=== PATIENT | female | born 1965 | race Caucasian/White ===

== ENCOUNTER 2022-03-08 20:51 | Emergency (ER) | payer OTHER, BC, SELFPAY ==
[2022-03-08 20:57] VITALS: BP 147/78; PULSE 73; RESP 20; TEMP 36.9; O2SAT 98; BMI 25.1
--- NOTE | 2022-03-08 21:21 | ED_ITS ---
HPI - Female Genitourinary General Chief complaint: Vaginal Bleeding <Yaniv Soria MD - Last Filed: 03/09/22 16:45> Stated complaint: Clotting,Bleeding <Yaniv Soria MD - Last Filed: 03/09/22 16:45> Time Seen by Provider: 03/08/22 21:17 <Yaniv Soria MD - Last Filed: 03/09/22 16:45> History of Present Illness HPI Narrative: Pt is a 56 year old woman who had a LEEP procedure 11 days ago. By all reports, things went well until she started bleeding profusely this evening. Pt is unable to quantify the amount of blood loss or pads used but states that she is passing bright red blood as well as clots. No abd pain. No fevers, chills. Pt is feeling well otherwise and has no urinary symptoms. Pt states that the procedure went well and she otherwise has no symptoms. Pt takes no blood thinners or anticoagulants and is otherwise in very good health. <Yaniv Soria MD - Last Filed: 03/09/22 16:45> Related Data Home medications: Home Medications Medication Instructions Recorded Confirmed sertraline 100 mg tablet 100 mg PO QDAY 02/24/22 03/08/22 <Yaniv Soria MD - Last Filed: 03/09/22 16:45> Allergies/Adverse reactions: Allergies Allergy/AdvReac Type Severity Reaction Status Date / Time metronidazole [From Flagyl] Allergy Mild Fever Verified 02/24/22 12:59 Sulfa (Sulfonamide Allergy Mild Fever Verified 02/24/22 12:59 Antibiotics) <Yaniv Soria MD - Last Filed: 03/09/22 16:45> Review of Systems Status of ROS: Reports: 10 or more systems reviewed and unremarkable except as noted in History and below <Yaniv Soria MD - Last Filed: 03/09/22 16:45> [facility] Medical History: Medical History (Updated 03/09/22 @ 01:19 by Natasha Dean MD) APRIL II (cervical intraepithelial neoplasia II) <Yaniv Soria MD - Last Filed: 03/09/22 16:45> Surgical History: Surgical History (Updated 03/08/22 @ 23:36 by Elke Mason MD) H/O LEEP <Yaniv Soria MD - Last Filed: 03/09/22 16:45> Social History: Social History Smoking Status: Never smoker Non-prescribed substance use: denies use <Yaniv Soria MD - Last Filed: 03/09/22 16:45> Exam Narrative: Exam Narrative: EXAM GENERAL: Patient appears comfortable and well. EYES: No scleral icterus. LYMPH: No supraclavicular or cervical lymphadenopathy. SKIN: Visible skin seen during exam normal or with benign process only. EXT: No dependent lower extremity pedal edema. HEART: Regular rate and rhythm with no murmurs, rubs, or gallops. LUNGS: Clear to auscultation bilaterally with no crackles or wheezes. ABD: Soft, non tender, non distended. PSYCH: Good eye contact, speech is not pressured. <Yaniv Soria MD - Last Filed: 03/09/22 16:45> Const: Vital Signs, click to edit/add: Vital Signs - 24 hr 03/08/22 20:57 03/08/22 22:34 03/08/22 23:44 Temperature 98.5 F Pulse Rate [Right Pulse Oximeter] 73 76 71 Respiratory Rate 20 18 Blood Pressure [Le ft Upper Arm] 147/78 H 130/63 Pulse Oximetry 98 98 99 Oxygen Delivery Me thod Room Air Room Air 03/09/22 00:47 03/09/22 02:09 03/08/22 22:00 Temperature 98.5 F Pulse Rate [Right Pulse Oximeter] 70 70 Respiratory Rate 16 16 Blood Pressure [Le ft Upper Arm] 123/68 125/74 Pulse Oximetry 98 98 98 Oxygen Delivery Me thod Room Air Room Air 03/09/22 04:58 Temperature 98.5 F Pulse Rate [Right Pulse Oximeter] 70 Respiratory Rate 16 Blood Pressure [Le ft Upper Arm] 125/74 Pulse Oximetry Oxygen Delivery Me thod <Yaniv Soria MD - Last Filed: 03/09/22 16:45> Vital Signs, click to edit/add: Vital Signs - 24 hr 03/08/22 20:57 03/08/22 22:34 03/08/22 23:44 Temperature 98.5 F Pulse Rate [Right Pulse Oximeter] 73 76 71 Respiratory Rate 20 18 Blood Pressure [Le ft Upper Arm] 147/78 H 130/63 Pulse Oximetry 98 98 99 Oxygen Delivery Me thod Room Air Room Air 03/09/22 00:47 03/09/22 02:09 03/08/22 22:00 Temperature 98.5 F Pulse Rate [Right Pulse Oximeter] 70 70 Respiratory Rate 16 16 Blood Pressure [Le ft Upper Arm] 123/68 125/74 Pulse Oximetry 98 98 98 Oxygen Delivery Me thod Room Air Room Air 03/09/22 04:58 Temperature 98.5 F Pulse Rate [Right Pulse Oximeter] 70 Respiratory Rate 16 Blood Pressure [Le ft Upper Arm] 125/74 Pulse Oximetry Oxygen Delivery Me thod <Natasha Dean MD - Last Filed: 03/09/22 03:58> Course Course Hospital Course: Pt seen and examined. RADIATION CONTROL SPECIALIST coming down to see pt. <Yaniv Soria MD - Last Filed: 03/09/22 16:45> Reevaluation(s) Reevaluation #1: Pt remains stable. CBC pending. Case signed out to incoming provider. <Yaniv Soria MD - Last Filed: 03/09/22 16:45> Time: 23:55 <Yaniv Soria MD - Last Filed: 03/09/22 16:45> Consultations Consultation #1: Pt seen and treated by RADIATION CONTROL SPECIALIST who requests CBC and type and screen with reassessment by them in 4 hours. Pt remains vitally stable. <Yaniv rodgers MD - Last Filed: 03/09/22 16:45> Time: 22:41 <Yaniv Soria MD - Last Filed: 03/09/22 16:45> Vital Signs Vital signs: Initial Vital Signs Temperature 98.5 F 03/08/22 20:57 Temperature Source Temporal Artery Scan 03/08/22 20:57 Pulse Rate 73 03/08/22 20:57 Respiratory Rate 20 03/08/22 20:57 Blood Pressure 147/78 H 03/08/22 20:57 Blood Pressure Mean 101 03/08/22 20:57 Blood Pressure Position Sitting 03/08/22 20:57 Pulse Oximetry 98 03/08/22 20:57 Oxygen Delivery Method 03/08/22 20:57 Vital Signs Temperature 98.5 F 03/08/22 20:57 Pulse Rate 73 03/08/22 20:57 Respiratory Rate 20 03/08/22 20:57 Blood Pressure 147/78 H 03/08/22 20:57 Pulse Oximetry 98 03/08/22 20:57 Oxygen Delivery Method 03/08/22 20:57 Temperature 98.5 F 03/09/22 04:58 Pulse Rate 70 03/09/22 04:58 Respiratory Rate 16 03/09/22 04:58 Blood Pressure 125/74 03/09/22 04:58 Pulse Oximetry 98 03/09/22 02:09 Oxygen Delivery Method 03/09/22 02:09 <Yaniv Soria MD - Last Filed: 03/09/22 16:45> Initial Vital Signs Temperature 98.5 F 03/08/22 20:57 Temperature Source Temporal Artery Scan 03/08/22 20:57 Pulse Rate 73 03/08/22 20:57 Respiratory Rate 20 03/08/22 20:57 Blood Pressure 147/78 H 03/08/22 20:57 Blood Pressure Mean 101 03/08/22 20:57 Blood Pressure Position Sitting 03/08/22 20:57 Pulse Oximetry 98 03/08/22 20:57 Oxygen Delivery Method 03/08/22 20:57 Vital Signs Temperature 98.5 F 03/08/22 20:57 Pulse Rate 73 03/08/22 20:57 Respiratory Rate 20 03/08/22 20:57 Blood Pressure 147/78 H 03/08/22 20:57 Pulse Oximetry 98 03/08/22 20:57 Oxygen Delivery Method 03/08/22 20:57 Temperature 98.5 F 03/09/22 04:58 Pulse Rate 70 03/09/22 04:58 Respiratory Rate 16 03/09/22 04:58 Blood Pressure 125/74 03/09/22 04:58 Pulse Oximetry 98 03/09/22 02:09 Oxygen Delivery Method 03/09/22 02:09 <Natasha Dean MD - Last Filed: 03/09/22 03:58> MDM - Female Genitourinary MDM Narrative Medical decision making narrative: Pt presents with vaginal bleeding 11 days after a LEEP procedure. Pt presents with normal vital signs and an otherwise normal exam. RADIATION CONTROL SPECIALIST called. <Yaniv Soria MD - Last Filed: 03/09/22 16:45> Pt presents with vaginal bleeding 11 days after a LEEP procedure. Pt presents with normal vital signs and an otherwise normal exam. RADIATION CONTROL SPECIALIST called. Care turned over to Dr. Dean: Update [id number]: Patient with marked improvement, no further bleeding since topicals applied. She has been up ambulating to the bathroom with no further signs of bleeding. Discussed with OBGYN, they recommended another 2 hours of observation, and if patient continues to be hemostatic, discharge. Update 0230, no return of bleeding. Nursing team discharged per obese instructions with no additional ER physician intervention. <Natasha Dean MD - Last Filed: 03/09/22 03:58> Lab Data Attestation: I reviewed the patient's lab results. <Natasha Dean MD - Last Filed: 03/09/22 03:58> Lab results narrative: No anemia, but would not have time to have seen the lab appropriately crest <Natasha Dean MD - Last Filed: 03/09/22 03:58> Labs: Lab Results 03/08/22 03/08/22 Range/Units 22:32 22:32 WBC 12.08 H (4.50-11.00) K/uL RBC 4.06 (4.00-5.20) m/uL Hgb 12.6 (12.0-16.0) gm/dL Hct 38.5 (33.0-51.0) % MCV 95 (80-100) fL MCH 31 (26-34) pg MCHC 33 (32-36) gm/dL RDW Coeff of Nolberto 12.0 (11.5-15.5) % Plt Count 249 (140-440) K/uL Neut % (Auto) 59.3 (42.0-72.0) % Lymph % (Auto) 28.1 (20-44) % Otoe % (Auto) 7.9 (0.0-11.0) % Eos % (Auto) 3.3 (0.0-7.0) % Baso % (Auto) 0.3 (0.0-3.0) % Neut # (Auto) 7.20 H (1.7-7.0) K/uL Lymph # (Auto) 3.40 H (0.90-2.90) K/uL Otoe # (Auto) 1.00 H (0.00-0.90) K/UL Eos # (Auto) 0.40 (0.00-0.50) K/uL Baso # (Auto) 0.00 (0.00-0.30) K/uL Blood Type B Positive Antibody Screen NEGATIVE <Yaniv Soria MD - Last Filed: 03/09/22 16:45> Lab Results 03/08/22 03/08/22 Range/Units 22:32 22:32 WBC 12.08 H (4.50-11.00) K/uL RBC 4.06 (4.00-5.20) m/uL Hgb 12.6 (12.0-16.0) gm/dL Hct 38.5 (33.0-51.0) % MCV 95 (80-100) fL MCH 31 (26-34) pg MCHC 33 (32-36) gm/dL RDW Coeff of Nolberto 12.0 (11.5-15.5) % Plt Count 249 (140-440) K/uL Neut % (Auto) 59.3 (42.0-72.0) % Lymph % (Auto) 28.1 (20-44) % Otoe % (Auto) 7.9 (0.0-11.0) % Eos % (Auto) 3.3 (0.0-7.0) % Baso % (Auto) 0.3 (0.0-3.0) % Neut # (Auto) 7.20 H (1.7-7.0) K/uL Lymph # (Auto) 3.40 H (0.90-2.90) K/uL Otoe # (Auto) 1.00 H (0.00-0.90) K/UL Eos # (Auto) 0.40 (0.00-0.50) K/uL Baso # (Auto) 0.00 (0.00-0.30) K/uL Blood Type B Positive Antibody Screen NEGATIVE <Natasha Dean MD - Last Filed: 03/09/22 03:58> Discharge Plan Discharge Clinical Impression: Hemorrhage of cervix <Yaniv Soria MD - Last Filed: 03/09/22 16:45> Patient Disposition: Home w/ Parent or Adult <Yaniv Soria MD - Last Filed: 03/09/22 16:45> Condition: Improved <Yaniv Soria MD - Last Filed: 03/09/22 16:45> Additional Instructions: Materials were applied to the cervix to help stop the bleeding. This is unusual for the bleeding to happen this late after the procedure. No intercourse, trauma, tampons, etc. in the vagina until cleared by your Ob provider. Make a follow-up in 1 to 3 days to follow-up with your Ob provider, have your hemoglobin rechecked and see how things are going. Brownish discharge can be common from the chemicals that were put on her cervix, we would not expect a return of brisk bleeding like you had earlier today. If that happens, please come back to the emergency department. Would like for you to rest for the next 24 hours, light duty only. No heavy exercise, heavy lifting or other similar behaviors. Your blood counts looked good here in the emergency room but will likely crest a bit lower. You may feel little more fatigued and short of breath with activity but this should improve in a few weeks. Any severe symptoms would not be expected would warrant ER follow-up. It would not be normal to run fevers or to feel very ill, if this happens, please call your Ob provider. It is okay to take Tylenol and/or ibuprofen for discomfort. <Yaniv Soria MD - Last Filed: 03/09/22 16:45> Activity Level: Light activity <Yaniv Soria MD - Last Filed: 03/09/22 16:45> Light activity <Natasha Dean MD - Last Filed: 03/09/22 03:58> Discharge Diet: Regular <Yaniv Soria MD - Last Filed: 03/09/22 16:45> Regular <Natasha Dean MD - Last Filed: 03/09/22 03:58> Prescriptions: No Action sertraline 100 mg tablet 100 mg PO QDAY <Yaniv Soria MD - Last Filed: 03/09/22 16:45> Follow Up/Referrals: Gabriela Burks, [Primary Care Provider] - <Yaniv Soria MD - Last Filed: 03/09/22 16:45> Stand Alone Forms: My[facility] Info Instructions <Yaniv Soria MD - Last Filed: 03/09/22 16:45>
[2022-03-08 22:00] VITALS: O2SAT 98
--- NOTE | 2022-03-08 22:31 | ED.NURSE ---
Bed sheets changed. Patient helped to sitting position. Reports vasovagal history and preceded to apparently have one. Became white and nauseous and did vomit. Feeling passed and she was helped into bed. Vital signs taken and stable. Lab at bedside drawing blood.
[2022-03-08 22:34] VITALS: BP 130/63; PULSE 76; RESP 18; O2SAT 98
--- NOTE | 2022-03-08 23:25 | P.GYNCN_ITS ---
SECURITY SOLUTIONS ENGINEER - CN: HPI Data of Consult Time Seen by Provider: 10:00 Date Seen: 03/08/22 Patient: [facility] Patient Consult date: 03/08/22 Requesting Physician: Dr. Yaniv Soria Primary Care Provider: Gabriela Burks, Consult Narrative Reason for consult: vaginal bleeding Narrative: Christiana Naqvi is a 56 year old female s/p LEEP procedure on 02/24 due to APRIL II. Patient states that she had a normal recovery course with minimal bleeding and pain until tonight. She started having bright red blood and clots passing through her vagina after coming home from work. She states that it soaked through a pad so she called triage. When I spoke with patient on the phone she was sitting on the toilet and she continued to have bright red bleeding and clots. I recommended patient present to ED for evaluation and that someone else drive her. Her friend drove her to the ED shortly after. When I saw patient in the emergency room, she reported having already soaked through 3-4 period pads and currently wearing depens diaper provided by ED. When I checked her diaper, she had also soaked through it as well. She denied anything in her vagina since the procedure. Denies any trauma that could explain this sudden onset of bleeding. She reported calling the clinic a few days ago to report black discharge but was told that was normal given she had monsels applied to her procedure site. Denies SOB, CP, abnormal vaginal discharge or dizziness. cc:: CC: Review of Systems Status of ROS: Reports: 10 or more systems reviewed and unremarkable except as noted in History and below PFSH PFS Medical History (Updated 03/09/22 @ 01:19 by Natasha Dean MD) APRIL II (cervical intraepithelial neoplasia II) Surgical History (Updated 03/08/22 @ 23:36 by Elke Mason MD) H/O LEEP Social History Smoking Status: Never smoker Non-prescribed substance use: denies use Meds Home Medications and Allergies Home Medications Medication Instructions Recorded Confirmed Type sertraline 100 mg tablet 100 mg PO QDAY 02/24/22 03/08/22 History Allergies Allergy/AdvReac Type Severity Reaction Status Date / Time metronidazole [From Flagyl] Allergy Mild Fever Verified 02/24/22 12:59 Sulfa (Sulfonamide Allergy Mild Fever Verified 02/24/22 12:59 Antibiotics) 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 Mons normal, clitoris normal, urethral meatus normal. Labia minora and majora normal in appearance bilaterally. Blood on her perineum. Vaginal introitus normal appearance. With insertion of speculum, bright red blood filled speculum and clots were also expressed. After removal blood clots from vaginal value with sponge stick, patient cervix was visualized. Patient bleeding from all edged of previous LEEP procedure but most profusely from lower edge of cervix at 6'oclock. Ring forceps was applied to that area for temporary tamponade. Copious amount on Monsel (2 vials) was applied to the entire surface of LEEP wound. After monsel was applied, ring forceps removed from lower edge and excellent hemostasis was noted. Assessment and Plan Assessment and plan (1) Vaginal bleeding: Status: Acute (2) APRIL II (cervical intraepithelial neoplasia II): Status: Acute (3) History of loop electrosurgical excision procedure (LEEP): Status: Acute Plan - Patient with vaginal bleeding from cervix 2/2 to LEEP procedure - Pressure and copious amount of monsel applied. Excellent hemostasis after application of monsel - VSS - Hgb 12.6 - Pad count for 4 hours - If minimal bleeding after 4 hours of monitoring, ok to discharge with close follow up in [facility] [employer] [facility] clinic (sometime this week).
[2022-03-08 23:44] VITALS: PULSE 71; O2SAT 99
--- NOTE | 2022-03-09 00:18 | ED.NURSE ---
Pt up to bathroom ind, states no bleeding, denies any dizziness or pain. OB MD in with pt post bathroom.
[2022-03-09 00:47] VITALS: BP 123/68; PULSE 70; RESP 16; O2SAT 98
[2022-03-09 01:03] LABS: Basophils Percent Auto 0.3 % (0.0-3.0); Eosinophils Percent Auto 3.3 % (0.0-7.0); Hematocrit 38.5 % (33.0-51.0); Hemoglobin* 12.6 gm/dL (12.0-16.0); Immature Granulocytes Pct Auto 1.1 %; Lymphocytes Percent Auto 28.1 % (20-44); Mean Corpuscular HGB Conc 33 gm/dL (32-36); Mean Corpuscular Hemoglobin 31 pg (26-34); Mean Corpuscular Volume 95 fL (80-100); Monocytes Percent Auto 7.9 % (0.0-11.0); Neutrophils Percent Auto 59.3 % (42.0-72.0); Platelet Count* 249 K/uL (140-440); Red Blood Count 4.06 m/uL (4.00-5.20); Slide Review Reflex No; White Blood Count* 12.08 K/uL (4.50-11.00)
[2022-03-09 02:09] VITALS: BP 125/74; PULSE 70; RESP 16; TEMP 36.9; O2SAT 98
[2022-03-09 04:58] VITALS: BP 125/74; PULSE 70; RESP 16; TEMP 36.9
== END 2022-03-09 02:15 | disposition home or self-care (01) ==
PROVIDERS: Internal Medicine; Emergency Provider Family Medicine; PCP Family Medicine
DX: N99.820 Postprocedural hemorrhage of a genitourinary system organ or structure following a genitourinary system procedure (principal)
CPT/HCPCS: 36415; 85025; 86850; 86900; 86901; 94761; 99284